=== PATIENT | female | born 1955 | race Caucasian/White ===

== ENCOUNTER 2017-06-09 08:08 | Day surgery (SDC) | payer OTHER ==
--- NOTE | 2017-06-02 08:18 | MH ---
cc: AI NEFF ARUN M.D. DATE OF ADMISSION: 06/09/2017 DATE OF 1955 CHIEF COMPLAINT The patient will come for CT-guided left lung biopsy. HISTORY OF PRESENT ILLNESS Ms. Holder is a 62-year-old female who was admitted at [facility] with pancreatitis. She also developed renal failure, hypokalemia. She recovered from it. She has no fever or chills. No night sweats. No chest pain. A CT scan of the abdomen shows she has a 10-mm spiculated nodule in the left lower lobe. She had a CT scan of the chest done which confirms 10 mm minimally spiculated nodule in the left lower lobe, lobular emphysema. She was sent for a PET scan done in [place], [place]. It shows that she has a small focal area of mild FTG and DVT measuring SUV 2.0 in the left lower lobe lung nodule measuring 10 mm. She also has left infrahilar region small focal of activity measuring 3.4 cm. No suspicious uptake in the liver or spleen. Of note, the patient had a CT scan of the chest done on December 19, 2015 at [facility] which did not show any lung nodule. PAST MEDICAL HISTORY 1. History of pancreatitis 2. Atrophic left kidney 3. COPD, 4. Cholecystectomy, 5. Hysterectomy, 6. Ovarian cyst 7. History of cosmetic eye surgery. MEDICATIONS 1. Amlodipine 10 mg 2. Wellbutrin 150 mg twice a day. 3. Clonidine 0.2 mg twice a day. 4. Neurontin 400 mg a day. 5. Hydrochlorothiazide 50 mg a day 6. Reglan 10 mg ac and hs 7. Prilosec 20 mg a day, 8. Valcyte 500 mg a day ALLERGIES NO KNOWN DRUG ALLERGIES. SOCIAL HISTORY She has 40 years of smoking one to two packs a day which she quit one month ago. She has history of drinking which she quit 1 month ago. No drug abuse. She is self-employed. She has [employer] and also works as a direct of real estate. FAMILY HISTORY She is , lives alone. She has two children. She has five brothers, two as and one had a stroke. She has three sisters They are healthy. Both parents of Alzheimer's disease. REVIEW OF SYSTEMS Denies any weight loss. No fever or chills or hemoptysis. No DVT or pulmonary embolism. PHYSICAL EXAMINATION GENERAL: Well-developed, well-nourished female who comes here today with her daughter not in acute distress. VITAL SIGNS: Blood pressure 140/82, heart 70, respirations 16, oxygen saturation 99%. HEENT: Examination pupils are equal and reactive to light. Oral and nasal mucosa normal. NECK: Supple. JVP not raised. CHEST: Equal bilateral. No rhonchi. CARDIOVASCULAR: S1, S2 normal. ABDOMEN: Benign. EXTREMITIES: No edema. IMPRESSION 1. A 10 mm left lower lobe lung nodule with mild uptake on PET scan. This nodule was not present in 2016. It is concerning for malignancy. 2. Moderate to severe COPD. 3. Recent pancreatitis. 4. Nicotine use. 5. Neuropathy 6. Gastroesophageal reflux disease. PLAN I discussed with the patient and her daughter. She will need a CT-guided biopsy of the lung. I explained to her the procedure and the complications including complication of anesthesia, pneumothorax requiring chest tube, bleeding complication, injury to the blood vessels, lungs, nerves, arrhythmia, hypoxia and possibility of non-diagnostic biopsy. They understand well and want to proceed with it. She will be scheduled for biopsy at [facility]. MD MAE Cordova/ /6:22 PM /8:02 AM SHEL[place]
[2017-06-09] VITALS (8 sets, daily range): BP systolic 107–131; BP diastolic 48–82; PULSE 67–82; RESP 17–20; TEMP 97.8–97.9; O2SAT 94–97
[~2017-06-09] VITALS: Ht 167.6 cm; Wt 48.6 kg
[~2017-06-09 08:08] MED LIST: ALPR1TAB3 PO; NORV10TA PO; PROBCAP28 PO; TAB-TAB PO; TIOT1AER INH
[2017-06-09] MEDS ORDERED: D200CAP PO (08:44)
[2017-06-09] MEDS ORDERED: OMEP20TA93 PO (08:44)
[2017-06-09] MEDS ORDERED: LISI-515 PO (08:44)
[2017-06-09] MEDS ORDERED: [UNRECOGNIZED DRUG - MIXTURE] (08:44)
[2017-06-09] MEDS ORDERED: MULTTAB67 PO (08:44)
[2017-06-09] MEDS ORDERED: AMLO10TA2 PO (08:44)
[2017-06-09] MEDS ORDERED: CLON0.2T PO (08:44)
[2017-06-09] MEDS ORDERED: ZINC50TA2 PO (08:44)
[2017-06-09] MEDS ORDERED: VALA500T PO (08:44)
[2017-06-09] MEDS ORDERED: BUPR150CR PO (08:44)
[2017-06-09] MEDS ORDERED: SODIUM CHLOR 0.9% 1000 ML IV SCH (09:00)
[2017-06-09] MEDS ORDERED: SODIUM CHLORIDE 2 ML FLUSH BID IV FLUSH SCH (09:00)
[2017-06-09] MEDS ORDERED: SODIUM CHLORIDE 2 ML FLUSH PRN IV FLUSH (09:00)
[2017-06-09] MEDS ORDERED: LIDOCAINE HCL 1% 20 ML VIAL ONE (09:14)
[2017-06-09] MEDS ORDERED: MIDAZOLAM HCL 2 MG/2 ML VIAL ONE ×2 (09:38→10:13)
--- NOTE | 2017-06-09 10:53 | PD.RAD ---
Post CT Procedure Prog Note Pre Procedure Diagnosis: (1) Pulmonary nodule Post Procedure Diagnosis: (1) Pulmonary nodule Procedure Date: Jun 09, 2017 Supervising Radiologist: Jas Caballero Estimated blood loss: minimal Anesthesia: Conscious Sedation Plan of Activity Patient to Unit: [facility] Patient Condition: Good See PACS Report for procedural detail/treatment Biopsy Imaging Guidance: CT Side: Left Biopsy Procedure: Lung Site: left lower lobe nodule Specimen: Core Biopsy Plan to [facility] for monitoring then discharge in 4 hours. Jas Caballero MD Jun 09, 2017 10:53
[2017-06-09] MEDS ORDERED: oxyCODONE/ACETAMINOPHEN 5 MG/325 MG TAB PO PRN (11:00)
--- NOTE | 2017-06-09 11:35 | RADRPT ---
EXAM DATE/TIME: 06/09/2017 09:48 [facility] COMPARISON: No [place] examinations are available. Outside CT and PET CT examination from [facility] were reviewed. INDICATIONS : Left lower lobe lung nodule. SEDATION TIME: 30 minutes BIOPSY SITE: Left lung MEDICATION(S): 1.) 4 mg midazolam (Versed) IV 2.) 100 mcg fentanyl (Sublimaze) IV DEVICE(S): 1.) 20 gauge Temno core biopsy needle MEDICAL HISTORY : Hypertension. SURGICAL HISTORY : Hysterectomy. Cholecystectomy. ENCOUNTER: Initial ACUITY: 1 day PAIN SCORE: 0/10 LOCATION: Bilateral chest A total of four core specimen(s) were obtained and sent to the laboratory for pathologic evaluation. PROCEDURE: 1. CT guided lung biopsy. 2. Conscious sedation with continuous EKG and oximetry monitoring. 3. EKG and oximetry remained stable throughout the procedure. Prior to the procedure informed consent was obtained. The patient's prior imaging studies were review ed. Using automated exposure control and adjustment of the mA and/or kV according to patient size, ra diation dose was kept as low as reasonably achievable to obtain optimal diagnostic quality images. D ICOM format image data is available electronically for review and comparison. The site was prepped in a sterile fashion. Full sterile technique was used, including cap, mask, jayesh rile gloves and gown and a large sterile sheet. Hand hygiene and 2% chlorhexidine and/or betadine/al cohol prep was utilized per protocol for cutaneous antisepsis. The skin and subcutaneous tissues wer e infiltrated with local anesthetic solution. With CT guidance the left lower lobe lung nodule was localized. Biopsy was performed using the prescr ibed needle as above. Dry Janitor was present and confirmed and confirmed that an adequate samp le was obtained. Adequate hemostasis was obtained with compression at the puncture site. Follow-up CT scan reveals no pneumothorax or acute abnormality. Conscious sedation was performed with the prescribed dosages and duration as above in the presence of an independent trained radiology nurse to assist in the monitoring of the patient. EKG and oximetry remained stable throughout the procedure. The patient tolerated the procedure well and there were no complications. The patient was sent to Radiology Outpatient Unit in stable condition. CONCLUSION: Uncomplicated CT guided biopsy of a left lower lobe pulmonary nodule. Jas Caballero MD on June 09, 2017 at 11:31 Board Certified Radiologist. This report was verified electronically.
--- NOTE | 2017-06-09 12:40 | RADRPT ---
EXAM DATE/TIME: 06/09/2017 11:57 [facility] COMPARISON: CT NEEDLE BIOPSY LUNG, LEFT, June 09, 2017, 9:48. INDICATIONS : Evaluate for pneumothorax post biopsy. MEDICAL HISTORY : Hypertension. SURGICAL HISTORY : Cholecystectomy. Hysterectomy. ENCOUNTER: Initial ACUITY: 1 day PAIN SCORE: 0/10 LOCATION: Bilateral chest FINDINGS: A single frontal expiratory view of the chest was performed. There is COPD changes. There is no pneum othorax. The cardio-mediastinal contours and bronchopulmonary markings are unremarkable for an expiratory exam . Osseous structures are intact. CONCLUSION: 1. No pneumothorax identified following CT guided biopsy. 2. The patient's known left-sided lung masses not evident by plain film. 3. COPD changes. Pastor Max MD on June 09, 2017 at 12:36 Board Certified Radiologist. This report was verified electronically.
--- NOTE | 2017-06-09 14:07 | RADRPT ---
EXAM DATE/TIME: 06/09/2017 13:30 [facility] COMPARISON: CHEST EXPIRATION ONLY, June 09, 2017, 11:57. INDICATIONS : Evaluate for pneumothorax. MEDICAL HISTORY : Hypertension. SURGICAL HISTORY : Cholecystectomy. Hysterectomy. ENCOUNTER: Subsequent ACUITY: 1 day PAIN SCORE: 0/10 LOCATION: Bilateral chest FINDINGS: Portable upright expiratory view of the chest demonstrates a normal-sized cardiac silhouette. No pneu mothorax is visualized. No pleural effusion or interval change is identified. CONCLUSION: No pneumothorax is visualized following left lung nodule biopsy. Jas Caballero MD on June 09, 2017 at 14:01 Board Certified Radiologist. This report was verified electronically.
== END 2017-06-09 15:00 | disposition home or self-care (01) ==
LOC: HRAD 08:08 → HRIP 08:12 → HRAD 15:00
PROVIDERS: ATTEND Specialist
DX: J84.89 Other specified interstitial pulmonary diseases (principal); J44.9 Chronic obstructive pulmonary disease, unspecified; Z87.891 Personal history of nicotine dependence
CPT/HCPCS: 32405; 71045; 77012; 88305; 88312; 88333; J2250; J3010; J7030

== ENCOUNTER → 2017-11-04 | Outpatient (CLI) | payer OTHER ==
[~2017-11-04] MED LIST changes: -ALPR1TAB3 PO; +AMLO10TA2 PO; +BUPR150CR PO; +CLON0.2T PO; +CREON24 PO; +D200CAP PO; +GABA400C5 PO; +LISI-515 PO; +MULTTAB67 PO; +NICO21DI2 T-DERMAL; -NORV10TA PO; +OMEP20TA93 PO; -PROBCAP28 PO; -TAB-TAB PO; -TIOT1AER INH; +VALA500T PO; +ZINC50TA2 PO; +ZOFR8TAB PO; +[UNRECOGNIZED DRUG - MIXTURE]
== END ==
LOC: HRSP 08:04
PROVIDERS: ATTEND Internal Medicine Pulmonary Disease
DX: J44.9 Chronic obstructive pulmonary disease, unspecified (principal); R91.1 Solitary pulmonary nodule
CPT/HCPCS: 36600; 82805; 94060; 94726; 94729